=== PATIENT | female | born 1995 | race Caucasian/White ===

== ENCOUNTER 2025-01-12 01:06 | Day surgery (SDC) | payer OTHER, SELFPAY ==
[2025-01-05 09:47] VITALS: BMI 30.7
--- NOTE | 2025-01-05 09:54 | PC.NURSE ---
Report to the Outpatient Waiting Room, entrance under the green pavilion located off [facility], at time _0630_ on date _[id number]_. Planned Procedure Time: _0830_.? Time changes happen often and if your time is changed the preop area will call you the afternoon before. - You and your visitor will be asked to self-screen and do not enter if you have any COVID symptoms. Please call surgeon if you need to reschedule. - A mask is optional within the hospital at this time. Patients may have clear liquids (water, carbonated beverages, clear teas, apple juice) until 3 hours prior to surgery with a maximum of 20 ounces. - No food from midnight until time of surgery and no smoking, or chewing tobacco (or any form of nicotine). No chewing gum, candy or mints. Take only the following medications with a SIP of water on the morning of surgery: __None DO NOT STOP ANY OF YOUR OTHER PRESCRIPTION MEDICATIONS PRIOR TO SURGERY EXCEPT THE FOLLOWING Hold all vitamins and supplements for 3 days per anesthesiologist. Medications to discontinue per physician ___Zepbound____ Date to take last dose___Hold until after surgery.____ Please no make-up, nail urdu, hairspray, perfume, deodorant, or body powder the day of surgery.? No jewelry (including any body piercings) or valuables the day of surgery, leave them at home.? Please take a shower or bath the night before, or the morning of, surgery with an antibacterial soap.? Wear comfortable, loose fitting clothing.? - Jewelry must be removed prior to entering the operating room.? Rings and piercings that are not removed may be cut off. - The hospital will not accept responsibility for valuables.? - Please leave all valuables, including medications, at home the day of surgery. If you are going home after surgery, a licensed laborer driver must drive you home.? - NO public transportation without another adult if you receive anesthesia. - We recommend that an adult stay with you for 24 hours following discharge. - We also recommend that you do not drive, make important decision, drink alcoholic beverages, or take any drugs that were not prescribed by your health care provider for at least 24 hours after your discharge time. Follow any additional instructions given to you from your surgeon. Telephone instructions given to __Morgan___and asked if any additional questions and then verbalized understanding. Patient advised to call surgeon office or pre surgery nurse liaison [phone] if any additional questions.
--- NOTE | 2025-01-09 12:34 | PM.IMHP ---
H&P: HPI History of Present Illness Date/Time: 01/09/25 12:34 Chief Complaint: Excessive bleeding Narrative: 29 year para admitted for hysteroscopy dilatation curettage secondary to excessive heavy bleeding. Ultrasound shows thickened endometrium and I suspect this is an polyp. Risks and benefits of this procedure reviewed including but not exclusive of , aspiration pneumonia, bleeding, transfusion, perforation injury to bowel, bladder, ureters, or other internal organs with need for open laparotomy. She received the ACOG handout entitled hysteroscopy and dilatation curettage respectively. She had all questions answered. She asked to proceed. Review of Systems Review of Systems: All systems reviewed & are unremarkable except as noted in HPI and below PMFSH Social History Social History Smoking status: Never smoker Living arrangements: with family Spiritual care concerns: No Meds Home Medications and Allergies Home Medications ?Medication ?Instructions ?Recorded ?Confirmed ?Type tirzepatide (weight loss) 2.5 2.5 mg subcut WEEKLY 01/05/25 01/05/25 History mg/0.5 mL subcutaneous pen injector (Zepbound) Allergies Allergy/AdvReac Type Severity Reaction Status Date / Time No Known Allergies Allergy Verified 01/05/25 09:45 Exam Const: General: cooperative, healthy appearing, comfortable, well groomed and overweight Orientation/consciousness: oriented to person, oriented to place and oriented to time HENMT: Head: normal to inspection Resp: Effort & Inspection: normal respiratory effort Cardio: Rate: regular rate Rhythm: regular rhythm Heart sounds: S1 normal heart sound present and S2 normal heart sound present GI: Inspection: normal to inspection Auscultation: normal bowel sounds : External Female Exam: normal external appearance Speculum Exam - Vagina: normal appearance of the vagina Speculum Exam - Cervix: normal appearance of the cervix Bimanual exam- vagina & uterus: soft Bimanual Exam- Adnexa, other: normal adnexae Assessment and Plan Assessment and plan (1) Excessive bleeding: Code(s): R58 - Hemorrhage, not elsewhere classified Status: Acute Plan Proceed with hysteroscopy/dilatation and curettage
--- OUTSIDE RECORDS SUMMARY | 2025-01-12 01:09 | XMS_ITS | Continuity of Care Document ---
Author Organization [facility] Address [address] [place] [address] Phone Care Team Providers Care Scalp Treatment Specialist Name Role Phone Cristhian Pate MD Unavailable Unavailable Procedures Procedure Date Eye Exam & Treatment Refraction No Charge Glasses Check Advance Directives Directive Yes / No Effective Date File Name No Information Encounters Encounter Description Practice Location Reason(s) For Visit Diagnoses Date Provider Providers Copied on Encounter [facility], [address], [place], [place], [id number], [place] tel:[phone] [address] [place] Professional No Information [address]. [address] [facility] [place], [place], [id number], [place]. tel:[phone] Family History Family Member Type Diagnosis Age At Onset No Information Payers Payer name Insurance type Covered libertarian ID Authoriza tion(s) No Information Social History Type Description Quantity Date Captured Comments Sex Female Smoking Status No Information Chief Complaint And Reason For Visit No Information Reason For Referral Reason For Referral No Information History Of Present Illness Encounter Date Complaint History Of Prese nt Illness No Information Functional Status Date Functional Assessmen t No Information Instructions Date Instruction Additional Infor mation No Information Assessments Type Assessment Date No Information Patient Care Teams Name Effective Dates (start - stop) Status Members No Information
--- OUTSIDE RECORDS SUMMARY | 2025-01-12 01:09 | XMS_ITS | Clinical Summary ---
Author Organization [facility] Address [address] [place] [address] Phone Care Team Providers Care Clinical Cytopathologist Name Role Phone Provider, None Primary Care Provider Unavailabl e Allergies No known active allergies Medications naproxen (NAPROSYN) 500 MG Tablet Take 1 Tablet by mouth 2 times daily (with meals). 30 Tablet 03/14/2023 Active Social History Tobacco Use Types Packs/Day Years Used Date Smoking Tobacco: Never Smokeless Tobacco: Never Tobacco Cessation:Counseling Given: Not Answered Alcohol Use Standard Drinks/Week Comments Yes 8 (1 standard drink = 0.6 oz pur e alcohol) Sexually Active Control Partners Comments Yes Comments Unknown Sex and Gender Information Value Date Recorded Sex Assigned at Not on file Legal Sex Female 7:58 PM CDT Gender Identity Not on file Sexual Orientation Not on file Last Filed Vital Signs Vital Sign Reading Time Taken Comments Blood Pressure 112/67 03/14/2023 9:45 PM CDT Pulse 78 03/14/2023 9:45 PM CDT Temperature 36.8 C (98.3 F) 03/14/2023 8:04 PM CDT Respiratory Rate 18 03/14/2023 8:28 PM CDT Oxygen Saturation 96% 03/14/2023 9:45 PM CDT Inhaled Oxygen Concentration - - Weight 83.9 kg (185 lb) 03/14/2023 8:28 PM CDT Height - - Body Mass Index - - Plan of Treatment Health Maintenance Due Date Last Done Comments Hepatitis C Virus (HCV) Screening 1993 TdaP Immunization 1993 Hepatitis B Immunization (1 of 3 - 19+ 3-dose series) 2012 Pap Smear 2014 Cervical Cancer Screening (CCS) 2023 HPV/Cotest 2023 Influenza Immunization (#1) 2024 SARS-COV-2 Immunization ( - 2023-25 season) 2024 Respiratory Syncytial Virus (RSV) Immunization (Adult) (1 - 1-dose 75+ series) 2068 Meningococcal Immunization (ACWY) Aged Out No longer eligible based on patient's age to complete this topic Pneumococcal Immunization Combined Aged Out No longer eligible based on patient's age to complete this topic Rotavirus Immunization Aged Out No lo nger eligible based on patient's age to complete this topic Insurance [employer] Care Teams Clinical Cytopathologist Relationship Specialty Start Date End Date Provider, None SHANTANU PCP - General 03/14/23
--- OUTSIDE RECORDS SUMMARY | 2025-01-12 01:09 | XMS_ITS | Clinical Summary ---
Author Organization [facility] Address [address] [place] [address] Care Team Providers Care Beauty Shop Manager Name Role Phone No, Physician Primary Care Provider [phone] Allergies No known active allergies Medications semaglutide (OZEMPIC) 1 mg/dose (2 mg/1.5 mL) pen injector injection Inject 1 mg under the skin every 7 days Pt not sure of dosage Active propranoloL (INDERAL) 10 mg tablet Take 1 tablet (10 mg total) by mouth 2 (two) times a day 60 tablet 3 07/03/2024 Active amitriptyline (ELAVIL) 25 mg tablet Take 1 tablet (25 mg total) by mouth nightly for 7 days, THEN 2 tablets (50 mg total) nightly. 67 tablet 07/19/2024 Active Active Problems No known active problems Social History Tobacco Use Types Packs/Day Years Used Date Smoking Tobacco: Never Tobacco Cessation:Counseling Given: Not Answered AUDIT-C Answer Date Recorded Q1: How often do you have a drink containing alc ohol? 2-4 times a month 07/03/2024 Q2: How many drinks containi ng alcohol do you have on a typical day when you are drinking? 10 or more 07/03/2024 Q3: How often do you have si x or more drinks on one occasion? Monthly 07/03/2024 Hunger Vital Sign Answer Date Recorded Within the past 12 months, y ou worried that your food would run out before you got the money to buy more. Never true 07/03/20 24 Within the past 12 months, t he food you bought just didn't last and you didn't have money to get more. Never true 07/03/2024 Personal Safety Answer Date Recorded Have you ever been in or are you currently in a harmful physical or emotional relationship or is someone making you feel afraid or unsafe? Denies 06/14/2024 Comments Unknown Sex and Gender Information Value Date Recorded Sex Assigned at Not on file Legal Sex Female 5:56 PM CDT Gender Identity Not on file Sexual Orientation Not on file Obstetrics History Last Filed Vital Signs Vital Sign Reading Time Taken Comments Blood Pressure 121/75 07/03/2024 2:55 PM CDT Pulse 74 07/03/2024 2:55 PM CDT Temperature 36.7 C (98.1 F) 06/14/2024 11:59 PM CDT Respiratory Rate 18 06/14/2024 4:52 PM CDT Oxygen Saturation 95% 07/03/2024 2:55 PM CDT Inhaled Oxygen Concentration - - Weight 83.1 kg (183 lb 3.2 oz) 07/03/2024 2:55 P M CDT Height 167.6 cm (5' 6 ) 07/03/2024 2:55 PM CDT Body Mass Index 29.57 07/03/2024 2:55 PM CDT Plan of Treatment Health Maintenance Due Date Last Done Comments Cervical Cancer Screening 1993 Depression Screening 1993 Hepatitis C Screening 1993 DTaP/Tdap/Td Vaccine (1 - Tdap) 2004 Varicella Vaccines (1 of 2 - 13+ 2-dose series) 2006 Hepatitis B Screening 2011 Regular Well Visit/Exam 18-64 2011 Influenza Vaccine (#1) 2024 HPV Vaccines Aged Out No longer eligi ble based on patient's age to complete this topic Pneumococcal vaccine <65 Aged Out No longer eligible based on patient's age to complete [place] [address] [employer] [facility] HMO [facility] O Care Teams Beauty Shop Manager Relationship Specialty Start Date End Date No, Physician PCP - General 06/12/24
--- OUTSIDE RECORDS SUMMARY | 2025-01-12 01:09 | XMS_ITS | Referral Summary ---
Author Organization [facility] Address [address] [place] [address] Care Team Providers Care Roofing Contractor Name Role Phone No, Physician Primary Care Provider [phone] Allergies No known active allergies Medications semaglutide [...] 07/03/2024 2:55 PM CDT Plan of Treatment [place] [address] [facility] O Care Teams Roofing Contractor Relationship Specialty Start Date End Date No, Physician PCP - General 06/12/24
--- NOTE | 2025-01-12 06:28 | WPDHPUPDATE1 ---
History and Physical Update Update Date/Time: 01/12/25 06:28 History and Physical has been reviewed, including an updated exam of the patient. There are NO changes in the patient's condition. Risks, benefits, and alternatives have been discussed and questions answered. Patient agrees to proceed with procedure.
[2025-01-12 06:44] VITALS: BP 112/72; PULSE 76; RESP 18; TEMP 36.6; O2SAT 100
[2025-01-12] MEDS: ACETAMINOPHEN 500 MG TABLET 1000 MG PO (06:55)
[2025-01-12] MEDS: LACTATED RINGERS 1,000 ML 30 ML IV CONT (07:00)
--- NOTE | 2025-01-12 07:43 | P.PNAN_ITS ---
Anes - Initial Pre Proc Eval Procedure: Operation Date: 01/12/25 08:30 Proposed Procedures p Hysteroscopy Dilation and Curettage - Mehdi Velásquez MD Date/Time: 01/12/25 07:43 Surgeon: Mehdi Velásquez MD Pre Op Diagnosis: excessive heavy bleeding Patient Data Age: 29 Gender: F Height: 1.68 m Weight: 81.7 kg Last Vital Signs Temp 36.6 C 01/12/25 06:44 Pulse 76 01/12/25 06:44 Resp 18 01/12/25 06:44 BP 112/72 01/12/25 06:44 Pulse Ox 100 01/12/25 06:44 O2 Del Method Room Air 01/12/25 06:44 Allergies Allergy/AdvReac Type Severity Reaction Status Date / Time No Known Allergies Allergy Verified 01/12/25 06:50 Home Medications ?Medication ?Instructions ?Recorded ?Confirmed ?Type tirzepatide (weight loss) 2.5 2.5 mg subcut WEEKLY 01/05/25 01/05/25 History mg/0.5 mL subcutaneous pen injector (Zepbound) hydrocodone 5 mg-acetaminophen 325 1 tablet PO Q4H PRN pain #14 tabs 01/12/25 Rx mg tablet Patient hx anesthesia problems: none Family hx anesthesia problems: none Results Review: All pre-operative results and documents have been reviewed as part of the pre- operative evaluation. [facility] Social History Social History Smoking status: Never smoker Living arrangements: with family Spiritual care concerns: No Anes - Eval Final PreProcedure Day of Procedure 01/12/25 07:43 Patient weight: overweight Heart: regular rate and rhythm Lungs: clear to auscultation Airway: Mallampati scale class II Neurological: alert and oriented Last oral intake: >/= 8 hours ASA classification: II Emergent: no Anesthetic plan: proceed Anesthesia type and monitoring: general GIVS and standard monitoring Results Review: All pre-operative results and documents have been reviewed as part of the pre- operative evaluation. Informed Consent: The patient's anesthetic plan and its attendant risks and benefits were discussed with the patient/family/POA. Questions were solicited and answers provided to the satisfaction of the patient/family/POA.
[2025-01-12] MEDS: LIDOCAINE 1% LOCAL INJ 10 ML VIAL INFILTRATE (08:33)
--- NOTE | 2025-01-12 08:46 | W.PM.PROC2 ---
Procedure Note - Detailed Date of Procedure 01/12/25 Pre-op Diagnosis excessive heavy bleeding Post-op Diagnosis Other (Excessive bleeding/uterine polyp) Procedure Performed Hysteroscopy/dilatation curettage/polypectomy Surgeon Mehdi Velásquez MD Anesthesia MAC and Local Indications 29-year-old female with excessive bleeding and thickened endometrium ultrasound Findings Small polyp thickened Description of Procedure Patient was prepped and draped in the sterile fashion placed in the dorsal lithotomy position. Excellent IV sedation weighted speculum placed posterior fornix vagina. Anterior lip of the cervix grasped with a single-tooth tenaculum. 2.5cc 1% xylocaine anesthesia placed at 2, 4, 8, 10:00 a.m. of the cervix. Uterus sounded to7.5cm serial dilatation with fragmented dilators performed followed by passage of the 5mm visualizing hysteroscope using normal saline as visualizing medium. Small uterine polyp was seen and this was reticulated away. The uterus was scraped over the entire 360? until a good grating sound was heard. The instruments withdrawn the patient went to recovery in satisfactory condition. All sponge, needle, instrument counts were correct. There were no immediate complications Estimated Blood Loss 5 Drains No Packing No Pathology Yes Complications No immediate complications Condition Stable Disposition PACU
[2025-01-12 08:48] VITALS: BP 104/61; PULSE 94; RESP 14; O2SAT 100
[2025-01-12 09:15] VITALS: BP 103/61; PULSE 74; RESP 14; O2SAT 98
[2025-01-12 09:40] VITALS: BP 100/63; PULSE 61; RESP 14
== END 2025-01-12 09:54 | disposition home or self-care (01) ==
PROVIDERS: Visit Provider Obstetrics & Gynecology
PROC: 0U5B8ZZ Destruction of Endometrium, Via Natural or Artificial Opening Endoscopic (ICD-10-PCS; CPT 58563; principal; 2025-01-12 08:30)
DX: R93.89 Abnormal findings on diagnostic imaging of other specified body structures (principal); Z79.85 Long-term (current) use of injectable non-insulin antidiabetic drugs; Z79.891 Long term (current) use of opiate analgesic
CPT/HCPCS: 58558; 88305; A9270; J2003; J2250; J2704; J3010; J7120